=== PATIENT | male | born 1995 | race Caucasian/White ===

== ENCOUNTER → 2018-02-20 15:29 | Outpatient (CLI) | payer OTHER, SELFPAY ==
[2015-01-06 23:07] VITALS: BMI 24.4
== END ==
PROVIDERS: Family Provider Family Medicine; PCP Family Medicine; Referring Provider Otolaryngology Otolaryngology/Facial Plastic Surgery; Visit Provider Otolaryngology Otolaryngology/Facial Plastic Surgery
DX: J02.9 Acute pharyngitis, unspecified (principal)
CPT/HCPCS: 87070

== ENCOUNTER 2018-03-06 09:19 | Day surgery (SDC) | payer OTHER, SELFPAY ==
[2018-03-06 09:40] VITALS: BP 125/81; PULSE 106; RESP 18; TEMP 36.8; O2SAT 100; BMI 27.4
--- NOTE | 2018-03-06 11:12 | DCINST_ITS ---
Discharge Diet: Soft diet Discharge Activity: Return to Normal Activity Allergies/Adverse Reactions: Allergies No Known Allergies Allergy (Verified 02/27/18 09:49) Medications to take at Discharge Duloxetine Hcl [Cymbalta] 30 mg PO DAILY 03/06/18 Ondansetron [Zofran Odt] 4 mg PO Q12H PRN PRN 7 Days #14 tab 03/06/18 buPROPion SR [Wellbutrin SR (150mg tablets)] 150 mg PO DAILY 03/06/18 The following prescriptions were given: Ondansetron [Zofran Odt] 4 mg PO Q12H PRN PRN 7 Days #14 tab PRN Reason: Nausea Primary Care Physician: Josy Kurtz MD [Primary Care Provider] - Test Results: Test results from this visit will be discussed in further detail at your follow- up appointment, if applicable.
[2018-03-06] MEDS: Bupivacaine 0.5% PF 10 ML VIAL (11:26)
--- NOTE | 2018-03-06 11:30 | TONS_PTH ---
PATIENT: EDUARDO CARIAS LOC: [facility] U#:[id number] AGE/SX: 22/M ROOM: RE03/06/[address]: Dr. Ryan Grande MD : 1995 BED: DIS: 03/06/2018 SPEC #: [id number] RECD: 03/06/18 15:33 STATUS: TIAN CLAU #: [id number] PAUL: 03/06/18 11:[address]: Ryan Grande DEPT: SURGICAL PATHOLOGY RECD BY: Hola Flowers ENTERED: 03/07/18 11:54 SP TYPE: TONSILS OTHR DR: Dr. Josy Kurtz MD Tissues: Tonsil, NOS Procedures: Surgery Specimen Level III HEADER OPERATION: Tonsillectomy PRE-OP DIAGNOSIS: Chronic tonsillitis TISSUE SUBMITTED: Tonsils (tie on right tonsil) MICROSCOPIC DIAGNOSIS Bilateral tonsils: Reactive lymphoid hyperplasia, consistent with chronic tonsillitis. Focal actinomyces colonization. SJ:sammy 03/08/18 MICROSCOPIC DESCRIPTION Slides are reviewed. GROSS DESCRIPTION Received is one container labeled with the patient's name and designated tonsils - tie on right are two tonsils that in aggregate weigh 6.7 gm. The right tonsil has a -tie on it and measures 3 x 1.5 x 1 cm. The left tonsil measures 2.8 x 2 x 1.5 cm. Both tonsils are similar in appearance. The external surfaces are pink-felix, smooth, glistening and somewhat lobulated. Focally they are hemorrhagic, granular and bear cautery artifact. Serial cross sections through the tonsils reveal normal tonsillar architecture. Sections are submitted in two cassettes as follows: 1 - right tonsil, 2 - left tonsil. / TEMO:sammy 03/07/18 TC:3 [facility]: [id number] x2
--- NOTE | 2018-03-06 11:52 | PCM.OPRPT ---
Report of Operation Date of Procedure: 03/06/18 Pre-Operative Diagnosis: chronic tonsillitis Post-Operative Diagnosis: same Surgery/Procedure Performed:: tonsillectomy Description of Surgical Findings:: 2+ tonsils Type of Anesthesia:: General Anesthesiologist: Dorian Teresa Specimen's removed: tonsils Estimated Blood Loss (mL): minimal Description of Procedure: The patient was taken to the operating room on 03/06/18. He was placed in the supine position on the OR table. He was given sufficient general endotracheal anesthesia. The table was turned 90 degrees. A Ander mouth gag was inserted into the mouth and he was suspended on a valenzuela stand. The nasopharynx was inspected with a mirror and the adenoid was barely visible. It was left alone. The right tonsil was grasped with an allis clamp and removed using Bovie cautery. Absolute hemostasis was achieved using suction cautery. The left tonsil was grasped with an allis clamp and removed using Bovie cautery. Absolute hemostasis was achieved using suction cautery. A single figure of eight suture was placed superiorly with 4-0 chromic for a stubborn bleeder. This was very effective in controlling this bleeding. .5% marcaine was placed on an adenoid sponge and placed in each tonsillar fossa for one minute on each side and then removed. The gag was closed. It was re opened to inspect for bleeding and there was none. The gag was removed. The patient was awoken and brought to the recovery room in stable condition. Blood loss minimal, replacement none. Sponge, needle and instrument count were correct at the end of the procedure.
[2018-03-06 12:10] VITALS: BP 125/81; BP 163/103; PULSE 96; RESP 16; TEMP 36.8; O2SAT 99
[2018-03-06 12:15] VITALS: BP 125/81; BP 165/89; PULSE 69; RESP 16; O2SAT 100
[2018-03-06 12:30] VITALS: BP 125/81; BP 149/89; PULSE 66; RESP 16; O2SAT 98
[2018-03-06 12:41] VITALS: BP 125/81; BP 146/85; PULSE 64; RESP 16; TEMP 37.2
[2018-03-06] MEDS: HYDROcodone Bitartrate/Apap 5/325 Tablet PO (12:54)
[2018-03-06 13:27] VITALS: BP 125/81; BP 139/84; PULSE 69; RESP 18; TEMP 36.4; O2SAT 100
--- OUTSIDE RECORDS SUMMARY | 2018-06-07 21:33 | XMS RPT_ITS ---
:1995 Author Organization [facility] Care Team Providers Name Role Phone Ryan Grande Attending Unavailable Ryan Grande Referring Unavailable Josy Kurtz Primary Care Unavailable Joshua Ambrose Attending Unavailable Joshua Ambrose Referring Unavailable Josy Kurtz Primary Care Unavailable PROBLEMS PROBLEMS No Problem Records FoundPROCEDURES PROCEDURES No Procedure Records FoundRESULTS RESULTS OPERATIVE REPORT Observed: 03/06/2018 Status: F Source: [place] 11:54 AM [facility] REPOSITORY [facility] Medical Records Department [address] [place] [address] Operative Report 03/06/18 1152 MR#: [id number] Acct: [id number] Name: EDUARDO CARIAS Rep #: [id number] : 1995 22 From: Ryan Grande MD PCP: Josy Kurtz MD Status: [facility] Y Location: [place] [address] Report of Operation Date of Procedure: 03/06/18 Pre-Operative Diagnosis: chronic tonsillitis Post-Operative Diagnosis: same Surgery/Procedure Performed:: tonsillectomy Description of Surgical Findings:: 2+ tonsils Type of Anesthesia:: General Anesthesiologist: Dorian Teresa Specimen's removed: tonsils Estimated Blood Loss (mL): minimal Description of Procedure: The patient was taken to the operating room on 03/06/18. He was placed in the supine position on the OR table. He was given sufficient general endotracheal anesthesia. The table was turned 90 degrees. A Ander mouth gag was inserted into the mouth and he was suspended on a valenzuela stand. The nasopharynx was inspected with a mirror and the adenoid was barely visible. It was left alone. The right tonsil was grasped with an allis clamp and removed using Bovie cautery. Absolute hemostasis was achieved using suction cautery. The left tonsil was grasped with an allis clamp and removed using Bovie cautery. Absolute hemostasis was achieved using suction cautery. A single figure of eight suture was placed superiorly with 4-0 chromic for a stubborn bleeder. This was very effective in controlling this bleeding. .5% marcaine was placed on an adenoid sponge and placed in each tonsillar fossa for one minute on each side and then removed. The gag was closed. It was re opened to inspect for bleeding and there was none. The gag was removed. The patient was awoken and brought to the recovery room in stable condition. Blood loss minimal, replacement none. Sponge, needle and instrument count were correct at the end of the procedure. 03/06/18 1154 <Electronically signed by Ryan Grande MD> Date Ryan Grande MD CC: Josy Kurtz MD; Ryan Grande MD Signed TONSILS Observed: 03/06/2018 Status: F Source: [place] 11:30 AM [facility] REPOSITORY Patient: EDUARDO CARIAS : 1995 (22/) Acct Num: [id number] Phys: Ryan Grande MD Unit Num: [id number] Loc: [facility] Specimen: [id number] Received: 03/06/18 - 1533 Spec Type: TONSILS TISSUES 1 TISSUES: Tonsil, NOS GROSS DESCRIPTION Received is one container labeled with the patient's name and designated tonsils - tie on right are two tonsils that in aggregate weigh 6.7 gm. The right tonsil has a -tie on it and measures 3 x 1.5 x 1 cm. The left tonsil measures 2.8 x 2 x 1.5 cm. Both tonsils are similar in appearance. The external surfaces are pink-felix, smooth, glistening and somewhat lobulated. Focally they are hemorrhagic, granular and bear cautery artifact. Serial cross sections through the tonsils reveal normal tonsillar architecture. Sections are submitted in two cassettes as follows: 1 - right tonsil, 2 - left tonsil. / SJ: sammy 03/07/18 TC:3 CPT: 91698 x2 HEADER OPERATION: Tonsillectomy PRE-OP DIAGNOSIS: Chronic tonsillitis TISSUE SUBMITTED: Tonsils (tie on right tonsil) MICROSCOPIC DESCRIPTION Slides are reviewed. MICROSCOPIC DIAGNOSIS Bilateral tonsils: Reactive lymphoid hyperplasia, consistent with chronic tonsillitis. Focal actinomyces colonization. SJ:sammy 03/08/18 Signed Fabien Suresh MD 03/08/18 <signature on file> Performed By: #### PTONS #### [facility] [address] [place], [address] DISCHARGE INSTRUCTION Observed: 03/06/2018 Status: F Source: [place] 11:12 AM [facility] REPOSITORY [facility] Medical Records Department [address] [place] [address] Instructions for Home/Discharge Instructions 03/06/18 1112 MR#: [id number] Acct: [id number] Name: EDUARDO CARIAS Rep #: [id number] : 1995 22 From: Ryan Grande MD PCP: Josy Kurtz MD Status: [facility] Discharge Diet: Soft diet Discharge Activity: Return to Normal Activity Allergies/Adverse Reactions: Allergies No Known Allergies Allergy (Verified 02/27/18 09:49) Medications to take at Discharge Duloxetine Hcl [Cymbalta] 30 mg PO DAILY 03/06/18 Ondansetron [Zofran Odt] 4 mg PO Q12H PRN PRN 7 Days #14 tab 03/06/18 buPROPion SR [Wellbutrin SR (150mg tablets)] 150 mg PO DAILY 03/06/18 The following prescriptions were given: Ondansetron [Zofran Odt] 4 mg PO Q12H PRN PRN 7 Days #14 tab PRN Reason: Nausea Primary Care Physician: Josy Kurtz MD [Primary Care Provider] - Test Results: Test results from this visit will be discussed in further detail at your follow-up appointment, if applicable. 03/06/18 1112 <Electronically signed by Ryan Grande MD> Date Ryan Grande MD CC: Josy Kurtz MD Observed: 02/20/2018 Status: F Source: [place] CULTURE, THROAT 11:15 AM [facility] REPOSITORY Culture, Throat Mixed normal throat douglas. No Haemophilus, Streptococcus pneumoniae, beta-hemolytic Streptococcus or Staphylococcus aureus isolated. Performed By: #### [id number] #### [facility] [address] [place], [address] ALLERGIES ALLERGIES DATE TYPE / CODE NAME / CODE REACTION SEVERITY SOURCE 02/27/2018 Drug No Known Unknown [facility] Allergy/4160 Allergies/F00 [facility] [address]307(SNOMED [id number](RXNOR Repository CT) M) ENCOUNTERS ENCOUNTERS ADMIT/DISCHARGE ACCOUNT ADMITTING ENCOUNTER LOCATION SOURCE NUMBER CLASS 03/06/2018/ [id number] Ambulatory [address] ing:SDCRoom: Repository AC06 02/20/2018 [id number] Ambulatory [address] ing:LABSPEC Repository PAYERS PAYERS ENCOUNTER GUARANTOR PAYER SUBSCRIBER SOURCE 03/06/2018 EDUARDO PASTOR: Coleen [id number] Insurance:MEDICAL [id number] Number: [place] [id number]: ([phone]) Date:1298-21-52TW [phone] () [address], [place] [address]XT: 03/06/2018 Secondary NOT GIVENUNK Coleen Insurance:SELF PAY [facility] Number: Effective Repository Date:2017-12-01 02/20/2018 EDUARDO Jean Primary Dorothy MeltonB: [place] [id number] E Insurance:MEDICAL [id number] [facility] Number: Repository [place], [place] [id number] [id number]: ([phone]) Date:7980-84-97BY [phone] () [address], [place] [address]ZR: 02/20/2018 Secondary NOT GIVENUNK Coleen Insurance:SELF PAY [facility] Number: Effective Repository Date:2018-02-20
== END 2018-03-06 13:29 | disposition home or self-care (01) ==
LOC: SDC 09:27 → AC 09:27
PROVIDERS: Family Provider Family Medicine; PCP Family Medicine; Referring Provider Otolaryngology; Visit Provider Otolaryngology
DX: J35.01 Chronic tonsillitis (principal); J45.909 Unspecified asthma, uncomplicated; F32.9 Major depressive disorder, single episode, unspecified; Z79.899 Other long term (current) drug therapy
CPT/HCPCS: 00170; 42826; 88304; J7120; J2405

== ENCOUNTER → 2018-11-30 14:18 | Outpatient (CLI) | payer OTHER, SELFPAY ==
[2018-11-29 17:17] VITALS: BMI 27.4
== END ==
PROVIDERS: Family Provider Family Medicine; PCP Family Medicine; Referring Provider Physician Assistant; Visit Provider Physician Assistant
DX: L02.415 Cutaneous abscess of right lower limb (principal)
CPT/HCPCS: 87070; 87077; 87186; 87205

== ENCOUNTER → 2019-11-12 15:44 | Outpatient (CLI) | payer OTHER, SELFPAY ==
[2019-09-25 11:57] VITALS: BMI 27.4
--- NOTE | 2019-11-12 15:47 | RAD_ITS ---
STUDY: X-RAY - LUMBAR SPINE REASON FOR EXAM: Male, 24 years old. back pain TECHNIQUE: 5 view(s) of the lumbar spine were obtained. COMPARISON: None FINDINGS: Normal lumbar lordosis. There is no substantial scoliosis. There is a normal alignment of the vertebrae. Normal vertebral bodies. There are Schmorl''s nodes at multiple levels.. There is multi-level degenerative disc disease with multi-level disc space narrowing. The soft tissue structures are unremarkable. RAD/L/S Spine Min 4 Views IMPRESSION: Degenerative changes of the spine, as detailed above. No demonstrated fracture or subluxation. Electronically Signed: Gorge Bates MD at 7:43 EDT , Service support ,
== END ==
PROVIDERS: PCP Family Medicine; Referring Provider Family Medicine; Visit Provider Family Medicine
DX: M54.9 Dorsalgia, unspecified (principal)
CPT/HCPCS: 72110

== ENCOUNTER → 2020-03-17 | Outpatient (CLI) | payer BC, SELFPAY | END | disposition home or self-care (01) | LOC: LABSPEC 15:43 | PROVIDERS: PCP Family Medicine; Referring Provider Physician Assistant Surgical; Visit Provider Physician Assistant Surgical | DX: Z20.828 Contact with and (suspected) exposure to other viral communicable diseases (principal) | CPT/HCPCS: 87635; U0003 ==

== ENCOUNTER → 2020-06-25 11:02 | Outpatient (CLI) | payer BC, SELFPAY ==
[2020-06-25 13:15] LABS: CRP < 2.90 mg/L (0.0-3.0)
[2020-06-26 20:08] LABS: Endomysial Antibody IgA Negative (Negative)
[2020-06-26 21:01] LABS: Immunoglobulin A 195 mg/dL (90-386); t-Transglutaminase IgA <2 U/mL (0-3)
== END ==
PROVIDERS: PCP Family Medicine; Referring Provider Internal Medicine Gastroenterology; Visit Provider Internal Medicine Gastroenterology
DX: R19.7 Diarrhea, unspecified (principal)
CPT/HCPCS: 36415; 82784; 83516; 86140; 86255

== ENCOUNTER 2022-12-15 09:00 | Outpatient (RCR) | payer OTHER, SELFPAY ==
--- NOTE | 2022-09-22 12:13 | HP.PTEVAL_ITS ---
Patient's Visit Information Visit Information Visit Information: EDUARDO CARIAS is a 27 year old M referred to Physical Therapy by Dr. Ephraim Skinner DO with a diagnosis of SPINAL STENOSIS. Date of Evaluation: 09/22/22 Physical Therapist: Clare Cr PT, Cert MDT Visit Plan Frequency: 2-3x /Week Duration: 4-6 Weeks Plan: WEAN FROM BRACE TOLERATED. NO BENDING AND NO TWISTING. NO LIFTING, PUSHING OR PULLING > 10 LBS X 3 WKS. BEGIN WITH LUMBAR ISOMETRICS AND ADANCE ROM TOLERATED BEGINNING 10/13/22. POSTURE CORRECTION/STRENGTHENING, INSTRUCTION IN APPROPRIATE BODY MECHANICS AND ACTIVITY MODIFICATIONS. RONAN LE ROM, STRETCHING AND STRENGTHENING. HEP INSTRUCTION. Subjective Subjective: DX: S/P RONAN L1, L2, L4, L5 LAMINECTOMIES. RONAN L4-L5 MIRCRODISCECTOMY. RONAN PARTIAL FACETECTOMY AND DIRECT NERVE DECOMPRESSION, FORAMINOTOMIES L1-L2, AND L4-L5 RONAN ON 08/25/22. 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 CURRENTLY OFF WORK WITH TENTATIVE RTW DATE PENDING 10/04/22. Disability: 10% DISABILITY FOR [place]ING FROM [place] Present symptoms: RONAN LOW BACK PAIN/TENSION. LEFT GROIN, THIGH, LEG AND FOOT PAIN AND TINGLING. Present since: ABOUT 4 YEARS AGO. Pain Scale: WORST 5/10, LEAST 1/10 Currently: 3/10 Is it getting better, worse or staying the same: GETTING BETTER EA DAY Commenced as a result of: STRETCHING Symptoms at onset: LOW BACK AND ELECTRICITY DOWN RONAN LE'S - COULDN'T STAND UP Worse: GETTING OUT OF BED IN THE MORNING, STANDING, WALKING AND SITTING FOR PROLONGED PERIODS OF TIME. Better: LYING DOWN, COLD COMPRESS, WARM COMPRSS, GABAPENTIN, LIGHT STRETCHING. Disturbed sleep: NO Previous history/Previous treatment: PHYSICAL THERAPY, MUSCEL RELAXERS, STEROID INJECTINS, AND CAUDAL INJECTION PRIOR TO SURGERY WITHOUT SUCCESS. NO CHIROPRACTIC Treatment this episode: SURGERY Coughing/sneezing/straining: NEGATIVE Gait: I FEEL LIKE AN OLD MAN. I HAVE TO TAKE SHORTER STEPS . NO AD. COULD WALK ABOUT 45 MINUTES ON PAIN KILLERS BUT DECREASED OFF PAIN KILLERS AND NOW BACK UP TO ABOUT 30 MINUTES. Bowel or Bladder Dysfunction: NO Accidents: NO Unexplained weight loss: NO Imaging: NONE SINCE SURGERY. MRI BEFORE SURGERY OCT 2021 SHOWING TWO HERNIATIONS PER PATIENT REPORT PMH/Recent major surgery: UNREMARKABLE OTHER: PATIENT REPORTS RESTRICTIONS OF NO BENDING, NO TWISTING. NO LIFTING, NO PUSHING AND NO PULLING > 10 LBS. Objective Objective: Sitting/Standing Posture: FAIR. MILD FH AND RSH'S. REDUCED LUMBAR LORDOSIS BUT NO RELEVANT LATERAL SHIFT. Active Correction of posture: NE Other Observations: THIS PATIENT AMBULATES INDEP'LY INTO PT WITH LUMBAR BRACE, DECREASED CADANCE, DECREASED RONAN STRIDE LENGTH AND NO AD. HE IS ABLE TO TRANSFER INDEP'LY FROM SIT TO STAND WITHOUT UE ASSIST. Sensory deficit: RONAN LE LIGHT TOUCH SENSATION IS GROSSLY INTACT AND SYMMETRICAL ROM deficit: TIGHT RONAN LE HS'S AND GASTROC SOLEUS COMPLEX'S. Motor deficit: RONAN LE'S 5/5 WITH MMT'ING EXCEPT HIPS 4/5 Dural Signs: NEGATIVE RONAN LE'S. Lumbar mvmt loss: NT Core strength: POOR Palpation: LUMBAR INCISIONS LOOK GOOD WITHOUT ANY SIGNS OF INFECTION. TREATMENT: NEUROMUSCULAR REEDUCATION - RETRAINING OF MVMT AND POSTURE FOR SITTING, LYING AND STANDING ACTIVITIES. INSTRUCTED IN WALKING PROGRAM. Balance/Special Test Scores Oswestry Low Back Score: 17 Goals Goal 1:: DECREASE C/O LOW BACK AND L LE SXS'. Goal Time Frame: 4-6 Weeks Goal 2:: IMPROVE LIFTING, WALKING, SITTING, STANDING, SOCIAL LIFE, TRAVEL AND WORK FUNCTION. Goal Time Frame: 4-6 Weeks Goal 3:: INSTRUCT IN PROPHYLAXIS Goal Time Frame: 4-6 Weeks Anticipated Interventions Patient/Client Instruction: Educate patient on: Condition, Plan of Care and Risk Factors For the Purpose of:: To improve self management Therapeutic Exercise to Include: Strength training, Body mechanics, Postural training, Flexibilty training, Neuromotor development and Dynamic Lumbar Stabilization For the Purpose of:: To decrease pain, To increase ROM, To improve muscle performance and motor function, To increase tolerance to activity/condition/position, To improve ability of physical actions for surinder e/community/work/leisure and To improve gait and locomotor functions Cryotherapy (ice pack, ice massage): Yes For the Purpose of:: To decrease pain and To decrease swelling/inflammation Text: Thank you for the opportunity to evaluate your patient. For Medicare and Medicare HMO plans, please review the plan of care and approve it. It will need to be FAXED BACK to us at [phone] for Medicare purposes. For Medicare only, by signing this I certify the plan of care. Please let me know if there are questions or concerns regarding this plan of care. Physician Signature: Date:
--- NOTE | 2022-10-20 12:47 | HP.PTREVAL ---
Re-Evaluation Intro: Dr. Ephraim Skinner, DO, It has been my pleasure to treat EDUARDO CARIAS over the last 12 visits for SPINAL STENOSIS. Please see the progress note below for an update on the physical therapy plan of care! Subjective Subjective: PATIENT CONTINUES TO REPORT FEELING BETTER DAY BY DAY. PATIENT REPORTS HE ISN'T AWARE OF ANY RESTRICTIONS HE HAS AT THIS POINT AND THEY DID NOT SCHEDULE A FOLLOW UP CAMELIA'T WITH HIM. PATIENT STATES HE HAS BEEN LIFTING 20 LBS WITHOUT DIFFICULTY. BACK AND LEGS GET TIGHT AND SORE BY THE END OF THE DAY BUT NO POPPING IN HIS BACK ANYMORE. PATIENT DENIES PAIN AND REPORTS HE JUST GETS TIGHT. MASSAGE, HEAT AND STRETCHING HELP. 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 Objective Objective/Function: PATIENT WAS SEEN TODAY FOR RE-ASSESSMENT OF PROGRESS TOWARD THE SET PT GOALS AND THE NEED FOR FURTHER PHYSICAL THERAPY VS READINESS FOR DISCHARGE. PATIENT IS MAKING GOOD PROGRESS WITH PT AND IS A GOOD CANDIDATE TO CONTINUE PT BASED ON PROGRESS MADE AND ROOM FOR FURTHER IMPROVEMENT. PATIENT HAS DECREASED KNOWLEDGE OF SAFE EX PROGESSION AT THIS POINT IN HIS RECOVERING AND WOULD BENEFIT FROM FURTHER PT INSTRUCTION. PATIENT HAS A PHYSICAL JOB AND IS AGREEABLE TO CONTINUEING PT WHILE HE RETURNS TO WORK WITH ANY PHYSICIAN RESTRICTIONS GIVEN. UPON EXAM TODAY: LUMBAR MVMT LOSS: FLEX - MOD EXT - MOD R SG - MIN L SG - MIN PATIENT DENIES PAIN WITH LUMBAR ROM TESTING ALL PLANES. DURAL TESTS: NEGATIVE RONAN LE'S. ROM: TIGHT RONAN HS'S AND GASTROC SOLEUS COMPLEX'S. STRENGTH: RONAN LE STRENGTH 5/5 WITH MMT'ING CORE STRENGTH: FAIR HEP CHECK - GOOD KNOWLEDGE. LAST EX SESSION INCLUDED THE FOLLOWING: Elliptical: 5/5 5 minutes Cat-camel: 2x10 1a) Prince Pose: 2x30 1b) Press-up: 2x10x2 Nerve Clawson 2x30 sec ea leg Bird-dog Row: 10# 2x12 each side bu# ankle weight 2x12 S/L open book stretch for spinal rotation. x15 Bilateral Squat to Row: L4 2x12 Reverse Lunge to Pallof Press: L4 2x12 each Standing Circles w/ kinesis L4 2x15 Bilateral Stability Ball rollouts: 2x12 Plan Plan Plan: CONTINUE PT 3X'S A WK X 4 WKS FOR PROGRESSIVE RESISTIVE EX TOLERATED FOR RETURN TO WORK. FOCUS ON CORE STRENGTH AND STABILITY WITHOUT PROVOKING PAIN. ALSO CONTINUE TO WORK ON LE STRENGTH AND FLEXABILITY. Balance/Gait/Functional tests Balance/Special Test Scores Oswestry Low Back Score: 6 Goals Goals Goal 1:: DECREASE C/O LOW BACK AND L LE SXS'. Goal Time Frame: 4-6 Weeks Goal Progress: Progressing Goal 2:: IMPROVE LIFTING, WALKING, SITTING, STANDING, SOCIAL LIFE, TRAVEL AND WORK FUNCTION. Goal Time Frame: 4-6 Weeks Goal Progress: Progressing Goal 3:: INSTRUCT IN PROPHYLAXIS Goal Time Frame: 4-6 Weeks Goal Progress: Progressing Anticipated Interventions Anticipated Interventions Patient/Client Instruction: Educate patient on: Condition, Plan of Care and Risk Factors For the Purpose of:: To improve self management Therapeutic Exercise to Include: Strength training, Body mechanics, Postural training, Flexibilty training, Neuromotor development and Dynamic Lumbar Stabilization For the Purpose of:: To decrease pain, To increase ROM, To improve muscle performance and motor function, To increase tolerance to activity/condition/position, To improve ability of physical actions for home/community/work/leisure and To improve gait and locomotor functions Cryotherapy (ice pack, ice massage): Yes For the Purpose of:: To decrease pain and To decrease swelling/inflammation Re-Evaluation Ending Re-evaluation ending: Please do not hesitate to contact me at [phone] by phone or if you have questions or concerns regarding this new plan of care! Sincerely, Clare Cr, PT, Cert MDT
--- NOTE | 2022-11-19 11:01 | HP.PTREVAL_ITS ---
Re-Evaluation Intro: Dr. Ephraim Rosales, DO, It has been my pleasure to treat EDUARDO CARIAS over the last 24 visits for SPINAL STENOSIS. Please see the progress note below for an update on the physical therapy plan of care! Subjective Subjective: PATIENT REPORTS HE HASN'T BEEN HAVING ANY BACK PAIN. STATES LAST EX SESSION WAS CHALLENGING BUT NOT PAINFUL. HE REPORTS WITH PROLONGED STANDING HIS LEFT HS GETS TIGHT BUT GETS BETTER WITH TIME AND STRETCHING. STILL TAKING GABAPENTIN. 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 STATES DR. ROSALES DID NOT SCHEDULE FOLLOW UP CAMELIA'T WITH HIM. PATIENT REPORTS HE HAS CONTINUED TO IMPROVE BUT HE FEELS IT IS GOING TO TAKE TIME TO IMPROVE MORE. 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 PATIENT PLANS TO CONSIDER A [employer] MEMBERSHIP OR OTHER TO HELP TRANSITION TO INDEP EX AT DISCHARGE. Objective Objective/Function: PATIENT WAS SEEN TODAY FOR RE-ASSESSMENT OF PROGRESS TOWARD THE SET PT GOALS AND THE NEED FOR FURTHER PHYSICAL THERAPY VS READINESS FOR DISCHARGE. PATIENT IS MAKING CONTINUING TO MAKE GOOD PROGRESS WITH PT AND IS A GOOD CANDIDATE TO CONTINUE PT BASED ON PROGRESS MADE AND ROOM FOR FURTHER IMPROVEMENT. PATIENT IS GAINING KNOWLEDGE IN SAFE EX PROGESSION AT THIS POINT IN HIS RECOVERY AND WOULD BENEFIT FROM FURTHER PT INSTRUCTION TO HELP HIM SAFELY P ROGRESS BACK TO WORK FULL DUTY AND TO AN INDEP GYM PROGRAM. PATIENT HAS A PHYSICAL JOB AND IS AGREEABLE TO CONTINUEING PT WHILE HE RETURNS TO WORK WITH ANY PHYSICIAN RESTRICTIONS GIVEN. UPON EXAM TODAY: LUMBAR MVMT LOSS: FLEX - NIL EXT - NIL R SG - NIL L SG - NIL PATIENT DENIES PAIN WITH LUMBAR ROM TESTING ALL PLANES BUT HE DOES NOT MOVE EASILY INTO FULL ROM DUE TO STIFFNESS. DURAL TESTS: NEGATIVE RONAN LE'S. ROM: RONAN LE'S WFL STRENGTH: RONAN LE STRENGTH 5/5 WITH MMT'ING CORE STRENGTH: GOOD LAST EX SESSION INCLUDED THE FOLLOWING: Elliptical: L7 5 minutes Dynamic warm-up: 5 minutes 1a Kickstand Deadlift: 15#(x2) 3x8 each 1b SL Squat to Bench: 15# MB 3x8 each 1c Band Assist Nordics: Blue 3x8 2a Feet Elevated Push-up: 3x8 2b Inverted Row Gilliland Machine: 3x8 2c Decline Med Ball Sit-up: 15# 3x10 3a Half Kneel Anti-Rotation Cable Bar Chop: 35# 2x12 each side Yoga flow: down dog, up dog, pigeon, denise pose 3x10 each Plan Plan Plan: CONTINUE PT DECREASING TO 2X'S A WK X 2 WK THEN 1X A WK X 2 WKS BEFORE RE- CHECK TO WORK TOWARD INDEP GYM EX PROGRAM AND PROGRESSIVE RESISTIVE EX TOLERATED FOR RETURN TO WORK. FOCUS ON CORE STRENGTH AND STABILITY WITHOUT PROVOKING PAIN. ALSO CONTINUE TO WORK ON LE STRENGTH AND FLEXABILITY. NO RUNNING. Balance/Gait/Functional tests Balance/Special Test Scores Oswestry Low Back Score: 0 Goals Goals Goal 1:: DECREASE C/O LOW BACK AND L LE SXS'. Goal Time Frame: 4-6 Weeks Goal Progress: Progressing Goal 2:: IMPROVE LIFTING, WALKING, SITTING, STANDING, SOCIAL LIFE, TRAVEL AND WORK FUNCTION. Goal Time Frame: 4-6 Weeks Goal Progress: Progressing Goal 3:: INSTRUCT IN PROPHYLAXIS Goal Time Frame: 4-6 Weeks Goal Progress: Progressing Anticipated Interventions Anticipated Interventions Patient/Client Instruction: Educate patient on: Condition, Plan of Care and Risk Factors For the Purpose of:: To improve self management Therapeutic Exercise to Include: Strength training, Body mechanics, Postural training, Flexibilty training, Neuromotor development and Dynamic Lumbar Stabilization For the Purpose of:: To decrease pain, To increase ROM, To improve muscle performance and motor function, To increase tolerance to activity/condition/position, To improve ability of physical actions for home/community/work/leisure and To improve gait and locomotor functions Cryotherapy (ice pack, ice massage): Yes For the Purpose of:: To decrease pain and To decrease swelling/inflammation Re-Evaluation Ending Re-evaluation ending: Please do not hesitate to contact me at [phone] by phone or if you have questions or concerns regarding this new plan of care! Sincerely, Clare Cr, PT, Cert MDT
== END 2022-12-15 19:00 | disposition home or self-care (01) ==
LOC: PT 09:00
PROVIDERS: Referring Provider Orthopaedic Surgery; Visit Provider Orthopaedic Surgery
DX: M48.00 Spinal stenosis, site unspecified (principal)
CPT/HCPCS: 97110; 97112; 97162; 97164

== ENCOUNTER → 2023-04-14 | Outpatient (CLI) | payer OTHER, SELFPAY ==
--- NOTE | 2023-04-14 12:55 | US_ITS ---
STUDY: RENAL ULTRASOUND - COMPLETE REASON FOR EXAM: Male, 27 years old. DYSURIA TECHNIQUE: Ultrasound evaluation of the kidneys was performed with real-time and static watt-scale imaging. COMPARISON: None. FINDINGS: RIGHT KIDNEY: Normal location of the right kidney, which is normal in size. The right kidney measures 12.9 x 5 x 5.1 cm. There is a normal cortex of the right kidney. The renal cortex measures 2.3 cm. There is no right renal mass or cyst. There are no right renal calculi. There is no right hydronephrosis. DISTAL RIGHT URETER: There is non-visualization of the distal right ureter. There is no demonstrated right ureterovesical junction calculus. There is a visualized right ureteral jet. LEFT KIDNEY: Normal location of the left kidney, which is normal in size. The left kidney measures 12.4 x 5.6 x 5.3 cm. There is a normal cortex of the left kidney. The renal cortex measures 1.6 cm. There is no left renal mass or cyst. There are no left renal calculi. There is no left hydronephrosis. DISTAL LEFT URETER: There is non-visualization of the distal left ureter. There is no demonstrated left ureterovesical junction calculus. There is a visualized left ureteral jet. BLADDER: The distended urinary bladder has a volume of 364 ml. There is a normal wall thickness of the distended urinary bladder. There is no demonstrated mass within the urinary bladder. There are no demonstrated bladder calculi. US/Kidney and Bladder IMPRESSION: Normal ultrasound of the kidneys and urinary bladder. Electronically Signed: Jeffery Gannon MD at 17:17 EST ,
--- OUTSIDE RECORDS SUMMARY | 2023-04-14 13:17 | XMS RPT_ITS | CCD ---
Author Name Unknown Address [address] [place] [address] Organization [facility] Care Team Providers Care Safety Analyst Name Role Phone Silas Pérez PA-C Unavailable Silas Pérez PA-C Unavailable Danica Mann MA Unavailable Unavailable Willard HYPERION DEVELOPER, Addis Unavailable Unavailable Donal HYPERION DEVELOPER, Kashif Unavailable Unavailable Unavailable Unavailable MOR DONALDSON LEAD ASSEMBLER%CUSTOMER SERVICE COORDINATOR Admitting Unavailabl e MOR DONALDSON LEAD ASSEMBLER%CUSTOMER SERVICE COORDINATOR [facility] YUND, MOR LEAD ASSEMBLER%CUSTOMER SERVICE COORDINATOR Primary Care [facility] Attending Unavailable [facility] Primary Care Unavailable [facility] Admitting Unavailable Garfield TERRY, Dr. Mullins ([facility]) Unavailable [phone] Medications Current Medications Medication Drug Class(es) Dates Sig (Normalized) Sig (Original) amLODIPine 10 mg oral tablet (5 sources) Dihydropyridine Cal[facility] [place] Start: 03-29-2023 amLODIPine 10 mg tablet ; 1 (one) tablet daily for 0 days Quantity: 30 {Tablet} Refills: 0 Ordered: 29-Mar-2023 EILEEN Pérez Start: 29-Mar-2023 Completed/Discontinued Medications Medication Drug Class(es) Dates Sig (Normalized) Sig (Original) sulfamethoxazole 800 mg / trimethoprim 160 mg oral tablet (5 sources) Dihydrofolate Reductase Inhibitor Antibacterial, Sulfonamide Antimicrobial Start: 03-16-2023 End: 03-30-2023 sulfamethoxazole 800 mg-trimethoprim 160 mg tablet ; 1 (one) tablet two times daily for 14 days Quantity: 28 {Tablet} Refills: 0 Ordered: 16-Mar-2023 EILEEN Pérez Start: 16-Mar-2023 End: 30-Mar-2023 Status: Inactive Problems Active Problems Problem Classification Problem Date Documented Da te Episodic/Chronic Administrative/social admission (10 sources) Worried well; Translations: [Person with feared health complaint in whom no diagnosis is made] 03-07-2023 Episodic Disorders of lipid metabolism (10 sources) Dyslipidemia; Translations: [Hyperlipidemia, unspecified] 03-07-2023 Chronic Essential hypertension (10 sources) Hypertensive disorder; Translations: [Essential (primary) hypertension] 03-07-2023 Chronic Genitourinary symptoms and ill-defined conditions (20 sources) Dysuria; Translations: [Dysuria] 03-07-2023 Episodic Other circulatory disease (20 sources) Raynaud's phenomenon; Translations: [Raynaud's syndrome without gangrene] 01-21-2023 Chronic Unclassified (5 sources) Follow up for chronic condition - The patient is here for follow-up of hypertension and other condition(s) (Raynauds Phenomenon). The patient always takes the prescribed medications. No side effects noted. The patient has an active lifestyle but no regular exercise program. The patient's out of office blood pressure checks occur frequently (Pt said it has been running in the 140s) and dietary compliance is good with close adherance to recommendations. The patient states that there is no recent angina or dyspnea, weight has decreased (down 3 lbs) and they do not have headaches. Note for Chronic condition follow-up : Patient does note mild improvement of poor circulation and cold hands since initiation of amlodipine but still admits to persistent symptoms. 02/11/23 130/ 130/ 153/ 148/ 155/92 02/16/23 157/8712 138/84 02/21/23 132/82 02/22/23 147/80 02/23/23 146/8402/25/23 135/8012 170/90 02/27/23 129/ 144/92 03/01/23 130/82 03-03-2023 Past or Other Problems Problem Classification Problem Date Documented Da te Episodic/Chronic Unclassified (5 sources) Well adult male - The patient feels well with no complaints, has decreased energy level (works night supervisor) and is sleeping well. The patient has a balanced diet. The patient exercises daily (walking). The patient sleeps 7 (6-8) hours per night. 01-21-2023 Urinary tract infections (5 sources) Urinary tract infections 03-07-2023 Results Test Name Value Interpretation Reference Range Facil ity Vital Signs Date Time Vital Sign Value Performing Clinician Faci lity 03-07-2023 14:15-0500 Body temperature 97 [degF] Kashif Mansfield [facility] [place] [facility], Copyright Agent.; [employer], Copyright Agent. 03-07-2023 14:15-0500 Body weight 92.[address] [facility] [address] [employer], Copyright Agent. 03-07-2023 14:15-0500 Diastolic blood pressure 72 mm[Hg] Kashif Mansfield [facility] [address] [employer], Copyright Agent. Encounters Encounter Date Encounter Type Care Provider Facility Start: 03-31-2023 End: 03-31-2023 Orders Luke Beto PA-C Work Phone: [facility] [address]. Start: 03-17-2023 End: 03-17-2023 [facility] Start: 03-16-2023 End: 03-16-2023 Medication Luke Beto PA-C Work Phone: [facility] [address]. Start: 03-07-2023 End: 03-07-2023 Office outpatient visit 15 minutes Luke Beto PA-C Work Phone: [facility] [address]. Start: 03-03-2023 End: 03-03-2023 Office outpatient visit 15 minutes Luke Beto PA-C Work Phone: [facility] [address]. Start: 02-07-2023 End: 02-07-2023 Medication Luke Beto PA-C Work Phone: [facility] [address]. Start: 01-21-2023 End: 01-21-2023 Initial preventive medicine new pt age 18-39yrs Luke Beto PA-C Work Phone: [facility] Start: 01-21-2023 End: 01-21-2023 Physical examination Silas Pérez PA-C Work Phone: [facility] [facility] [address] Start: 07-02-2022 End: 07-02-2022 ambulatory MOR LEAD ASSEMBLER%CUSTOMER SERVICE COORDINATOR [facility] Physical examination Silas morrisr PA-C Work Phone: [facility]; [facility]. Procedures Date Procedure Procedure Detail Performing Clinician Start: 01-21-2023 End: 01-21-2023 Depression screening Silas Proctorler PA-C Work Phone: Start: 01-21-2023 End: 01-21-2023 Scr dep neg, no plan reqd Silas Partida tler PA-C Work Phone: Start: 07-02-2022 End: 07-02-2022 Lab findings surveillance Addis Lamar LPN Immunizations Immunization Date Immunization Notes Care Provider Kmiberlee rooney 12-19-2022 influenza, injectabl e, quadrivalent, contains preservative Silas Pérez PA-C Work Phone: [facility]; [facility]. Payers Date Payer Category Payer Unknown [id number] Unknown [employer] Unknown [id number] Social History Date Type Detail Facility Alcohol Use Alcohol Use [facility] [address]. Tobacco Use: Tobacco Use: ; Never smoker. [facility] [address] [facility] [address]. Male [employer]. Work Phone: Never smoked tobacco [facility] [address] [facility] [address]. Work Phone: Summary Purpose Family History Arthritis Status:Active Comments:Materna l Aunt. Autoimmune disease Status:Active Comments:Mate rnal Aunt. Cerebrovascular Accident Status:Active Comment s:Maternal Grandfather. Maternal Grandmother. Diabetes Mellitus Type II Status:Active Commen ts:Maternal Grandfather. Maternal Grandmother. Hashimotos Status:Active Comments:Mother. Heart disease Status:Active Comments:Materna l Grandfather. Maternal Grandmother. Hypertension Status:Active Comments:Mother. Maternal Grandfather. Maternal Grandmother. Arthritis Status:Active Comments:Materna l Aunt. Autoimmune disease Status:Active Comments:Mate rnal Aunt. Cerebrovascular Accident Status:Active Comment s:Maternal Grandfather. Maternal Grandmother. Diabetes Mellitus Type II Status:Active Commen ts:Maternal Grandfather. Maternal Grandmother. Hashimotos Status:Active Comments:Mother. Heart disease Status:Active Comments:Materna l Grandfather. Maternal Grandmother. Hypertension Status:Active Comments:Mother. Maternal Grandfather. Maternal Grandmother. Arthritis Status:Active Comments:Materna l Aunt. Autoimmune disease Status:Active Comments:Mate rnal Aunt. Cerebrovascular Accident Status:Active Comment s:Maternal Grandfather. Maternal Grandmother. Diabetes Mellitus Type II Status:Active Commen ts:Maternal Grandfather. Maternal Grandmother. Hashimotos Status:Active Comments:Mother. Heart disease Status:Active Comments:Materna l Grandfather. Maternal Grandmother. Hypertension Status:Active Comments:Mother. Maternal Grandfather. Maternal Grandmother. Arthritis Status:Active Comments:Materna l Aunt. Autoimmune disease Status:Active Comments:Mate rnal Aunt. Cerebrovascular Accident Status:Active Comment s:Maternal Grandfather. Maternal Grandmother. Diabetes Mellitus Type II Status:Active Commen ts:Maternal Grandfather. Maternal Grandmother. Hashimotos Status:Active Comments:Mother. Heart disease Status:Active Comments:Materna l Grandfather. Maternal Grandmother. Hypertension Status:Active Comments:Mother. Maternal Grandfather. Maternal Grandmother. Arthritis Status:Active Comments:Materna l Aunt. Autoimmune disease Status:Active Comments:Mate rnal Aunt. Cerebrovascular Accident Status:Active Comment s:Maternal Grandfather. Maternal Grandmother. Diabetes Mellitus Type II Status:Active Commen ts:Maternal Grandfather. Maternal Grandmother. Hashimotos Status:Active Comments:Mother. Heart disease Status:Active Comments:Materna l Grandfather. Maternal Grandmother. Hypertension Status:Active Comments:Mother. Maternal Grandfather. Maternal Grandmother. Advance Directives No Advanced Directives Records FoundNo Advanced Directives Records FoundNo Advanced Directives Records FoundNo Advanced Directives Records Found Additional Source Comments (unrecognized sect ion and content) No Status Records FoundNo Status Records FoundNo Status Records FoundNo Status Records Found INFORMATION SOURCE (unrecogn ized section and content) DATE CREATED AUTHOR AUTHOR'S ORGANIZ ATION 10/10/2019 [facility] DATE CREATED AUTHOR AUTHOR'S ORGANIZ ATION 03/09/2023 [facility] DATE CREATED AUTHOR AUTHOR'S ORGANIZ ATION 03/30/2023 [facility] FOR RECORDS PERTAINING TO PATIENTS WHO ARE OR HAVE BEEN ENROLLED IN A CHEMICAL DEPENDENCY/SUBSTANCEABUSE PROGRAM, SOME INFORMATION MAY BE OMITTED. This clinical summary was aggregated from multiple sources. Caution should be exercised in using it in the provision of clinical care. This summary normalizes information from multiple sources, and as a consequence, information in this document may materially change the coding, format and clinical context of patient data. In addition, data may be omitted in some cases. CLINICAL DECISIONS SHOULD BE BASED ON THE PRIMARY CLINICAL RECORDS. [employer] provides no warranty or guarantee of the accuracy or completeness of information in this document.
== END | disposition home or self-care (01) ==
LOC: US 12:54
PROVIDERS: PCP Physician Assistant; Referring Provider Nurse Practitioner; Visit Provider Nurse Practitioner
DX: R30.0 Dysuria (principal)
CPT/HCPCS: 76770